=== PATIENT | female | born 1945 | race Caucasian/White ===

== ENCOUNTER 2024-08-06 10:55 | Outpatient (REF) | payer MEDICARE, SELFPAY | END 2024-08-06 10:56 | disposition home or self-care (01) | LOC: HO.LAB 10:55 | PROVIDERS: PCP Internal Medicine; Visit Provider Internal Medicine | DX: Z13.89 Encounter for screening for other disorder (principal) | CPT/HCPCS: 99212 ==

== ENCOUNTER 2024-08-06 10:55 | Outpatient (AMB) | payer MEDICARE, SELFPAY ==
--- NOTE | 2024-08-06 11:19 | AM.OFFWIN_ITS ---
Intake Vital Signs 08/06/24 11:22 Height 5 ft 2 in Weight 206 lb BMI 37.7 BP 122/80 Blood Pressure Location Lt brachial Position Sitting Pulse 92 Pulse Source Pulse Oximeter Pulse Oximetry (%) 95 Oxygen Delivery Method Room Air Intake Visit Reasons: EP cough, cold symptoms Intake Note: Patient here for constant cough, right ear pain, diarrhea and congestion that has been present for about 3 weeks. Patient Tobacco Use Status: Current someday Tobacco user Allergies No Known Allergies Allergy (Verified 08/06/24 11:23) Do you need a note to return to daycare/school/sports/work: No HPI EP cough, cold symptoms HPI Details This note is constructed using voice recognition software. While every effort has been made to ensure accuracy, gold frame assembler errors may have been included. The patient is a 79 year old female who presents to the clinic today with URI symptoms for the past 3 weeks. She denies fever, chills, dyspnea. She does report cough, and has been using her normal allergy treatment as she is an allergy suffer. She has not tried any qnab-eaa-izizajf cough medicines as they do not seem to help her. [facility] Social History Patient Tobacco Use Status: Current someday Tobacco user Review of Systems Const All systems reviewed & are unremarkable except as noted in HPI and below Physical Exam Vital Signs: Last Vital Signs Pulse 92 08/06/24 11:22 BP 122/80 08/06/24 11:22 Pulse Ox 95 08/06/24 11:22 Oxygen Delivery Method Room Air 08/06/24 11:22 BMI result Body Mass Index 37.7 Const General: cooperative, healthy appearing, comfortable and no acute distress Orientation/consciousness: patient oriented x3 Limitations: no limitations HEENT Head: Yes normal to inspection Ears: hearing grossly normal bilaterally, external ears normal and TM abnormal retracted General nose exam: Normal external nose present, No nasal discharge present and Abnormal mucous membranes and turbinates present boggy and pale Face and sinus: Yes normal facial exam and Yes sinuses nontender Mouth: Normal oral and palatal mucosa present and moist mucous membranes Throat: Yes tonsils normal, Yes uvula midline, Yes posterior oropharynx abnormal (Erythema), Yes postnasal drainage and Yes cobblestoning Eyes General: appearance normal, both eyes and all related structures Neck Neck: Yes normal visual inspection Resp Effort & Inspection: normal respiratory effort, able to speak in complete sentences, Actively coughing, no respiratory distress, not tachypneic, no tripod positioning and no use of accessory muscles Auscultation: wheezes throughout Cardio Rate: regular rate Rhythm: regular rhythm Heart sounds: normal S1 and S2 Skin General skin exam: no rashes or lesions noted Neuro General: patient oriented x3 Extrem General: Yes normal to inspection and Yes no clubbing, cyanosis or edema Assessment & Plan Assessment & Plan (1) URI (upper respiratory infection): Code(s): J06.9 - Acute upper respiratory infection, unspecified Qualifiers: URI type: unspecified URI Qualified Code(s): J06.9 - Acute upper respiratory infection, unspecified Plan: Viral swab obtained to rule out Covid based on symptoms. Advised mask wearing while symptomatic and quarantine per current CDC guidelines. Reviewed at home support methods including hydration, humidification, vix vapor rub, sinus rinse. Discussed treatment with antiviral therapy for covid with paxlovid including appropriate use and side effects, and need to start medication within 5 day of symptom onset, preferably within 48 hours of symptom onset. Patient is not qualified for paxlovid treatment. Advised follow up with worsening symptoms such as dyspnea at rest, which would require emergent evaluation. Xray ordered today for evaluation. (2) Pneumonia: Code(s): J18.9 - Pneumonia, unspecified organism Qualifiers: Pneumonia type: due to unspecified organism Laterality: unspecified laterality Lung location: unspecified part of lung Qualified Code(s): J18.9 - Pneumonia, unspecified organism Plan: Xray reviewed and appears to be pneumonia, added to exam, we will treat. Curb 65 score 1, safe for at home treatment. Antimicrobial therapy sent to requested pharmacy. Advised patient to continue with symptomatic management. Advised emergency room or more urgent follow up with any dyspnea at rest. Plan See above for full details and plan. Orders: Orders SARS-CoV2/FLU/RSV Today J06.9 - Acute upper respiratory infection, unspecified XR chest 2V Today J06.9 - Acute upper respiratory infection, unspecified, R06.2 - Wheezing Medications: New amoxicillin-pot clavulanate 875-125 mg 1 tab PO BID 10 days 20 tabs 0RF doxycycline hyclate 100 mg PO BID 10 days 20 caps 0RF Coding Level of Care Code Est Pt Level 4 (98160) Diagnoses Upper respiratory tract infection, unspecified type J06.9 URI type: unspecified URI Pneumonia due to infectious organism, unspecified laterality, unspecified part of lung J18.9 Pneumonia type: due to unspecified organism Laterality: unspecified laterality Lung location: unspecified part of lung
[2024-08-06 11:22] VITALS: BP 122/80; PULSE 92; O2SAT 95; BMI 37.7
== END 2024-08-06 12:12 | disposition home or self-care (01) ==
PROVIDERS: PCP Internal Medicine; Visit Provider Registered Nurse
DX: J06.9 Acute upper respiratory infection, unspecified (principal); J18.9 Pneumonia, unspecified organism

== ENCOUNTER 2024-08-06 11:47 | Outpatient (REF) | payer MEDICARE, SELFPAY ==
--- NOTE | ~2024-08-06 | XR_ITS ---
EXAMINATION: XR CHEST CLINICAL INFORMATION: Acute URI. COMPARISON: None available. TECHNIQUE: 2 views of the chest were obtained. FINDINGS: The lungs are well expanded. There is patchy airspace disease in the right middle lobe. No pleural effusion. Cardiac silhouette is within normal limits for patient's age. XR/XR chest 2V IMPRESSION: Possible right middle lobe infiltrate. Advise clinical correlation. Electronically signed by: Mj Mora MD 08/06/2024 12:26 PM EDT
[2024-08-06 14:57] LABS: Influenza A PCR NEGATIVE (Negative); Influenza B PCR NEGATIVE (Negative); Resp Syncy Virus RNA Qual PCR NEGATIVE (Negative); SARS COV2 PCR INHOUSE NEGATIVE (Negative)
== END 2024-08-06 11:48 | disposition home or self-care (01) ==
LOC: HO.HMGCX 11:47
PROVIDERS: PCP Internal Medicine; Visit Provider Registered Nurse
DX: J06.9 Acute upper respiratory infection, unspecified (principal); R06.2 Wheezing
CPT/HCPCS: 0241U; 71046; 99212

== ENCOUNTER 2025-04-29 08:02 | Outpatient (AMB) | payer MEDICARE, SELFPAY ==
--- NOTE | 2025-04-29 08:08 | MHC.OFFWIV ---
Intake Vital Signs 04/29/25 08:10 Height 5 ft 2 in Weight 205 lb BMI 37.5 BP 130/78 Blood Pressure Location Rt brachial Position Sitting Respiration 12 Pulse 61 Pulse Source Pulse Oximeter Temp 98 F Temp Source Oral Pulse Oximetry (%) 100 Oxygen Delivery Method Room Air Intake Visit Reasons: EP Sore, stiff LT thigh, hard to walk Intake Note: Pt is here today for left side sharp leg/thigh pain it is hard to walk for her. Pain started on tuesday night she is unsure to why she believes she has a pulled muscle. Patient Tobacco Use Status: Current someday Tobacco user Accompanied by: Self / Same As Patient Allergies No Known Allergies Allergy (Verified 04/29/25 08:12) HPI HPI Comments History of Present Illness Details History of Present Illness - The patient is an 80-year-old female presenting with left thigh pain which began on Tuesday. - Symptoms began with mild pain on Tuesday, escalating over the weekend, and are localized to the thigh. She has no radiation of the pain. - The description includes swelling, a sensation of pressure, and hardness. - The patient reports previous cramping and spasms and denies involvement of other joints or distal swelling. - The recent activity of extended sitting at graduation might have contributed to the presentation. - Previous home treatments with heat and cold were ineffective. - She denies trauma or falls. She denies CP, SOB, calf pain, numbness, tingling, hip pain, back pain, knee pain, ankle pain, or edema. Physical Exam General: Cooperative, healthy appearing, comfortable, no acute distress and well developed Respiratory: Normal respiratory effort and able to speak in complete sentences. Clear to auscultation bilaterally Cardiovascular: Regular rate and rhythm. Normal S1 and S2 Skin: No rashes or lesions noted Neuro: Patient oriented x3. Sensation is intact. Extremities: Normal to inspection of the left upper leg. No redness or warmth noted. TP of the left lateral upper leg. No edema noted. No knee tenderness. No calf tenderness noted. FROM the the hip, knee, and ankle. Ambulates with a limp. Strength is 5/5 on the LE bilaterally. Patient was informed and verbally consented to the use of an ambient scribe for clinic note documentation during this visit. [facility] Social History Patient Tobacco Use Status: Current someday Tobacco user Review of Systems Const All systems reviewed & are unremarkable except as noted in HPI and below Physical Exam Vital Signs: Last Vital Signs Temp 98 F 04/29/25 08:10 Pulse 61 04/29/25 08:10 Resp 12 04/29/25 08:10 BP 130/78 04/29/25 08:10 Pulse Ox 100 04/29/25 08:10 Oxygen Delivery Method Room Air 04/29/25 08:10 BMI result Body Mass Index 37.5 Assessment & Plan Assessment & Plan (1) Leg pain, left: Code(s): M79.605 - Pain in left leg Plan Most likely muscle strain vs spasm Plan - Initiate a muscle relaxant to alleviate muscle spasms. - Provide an analgesic for pain management - Advise use of a cane for ambulation support. - Elevate the affected leg using a pillow, trialing cold or heat application based on individual relief response. - Encourage monitoring pain and symptoms, focusing on improvement with the current treatment. Medications: New naproxen 500 mg PO Q12H PRN 20 tabs 0RF pain cyclobenzaprine 5 mg PO tid 7 days PRN 21 tabs 0RF Muscle Spasm Coding Level of Care Code Est Pt Level 3 (49216) Diagnoses Leg pain, left M79.605
--- OUTSIDE RECORDS SUMMARY | 2025-04-29 08:08 | XMS_ITS | Clinical Summary ---
Author Organization [address] Address [address] [place] [phone] Phone Care Team Providers Care Event Planning Manager Name Role Phone Sami Curtis MD Primary Care Provider [phone] Allergies Active Allergy Reactions Criticality Noted Date Comments Other 04/25/2022 Seasonal Allergies Medications cholecalcifero l (VITAMIN D-3) 50 mcg (2,000 unit) capsule Take 2,000 Units by mouth daily. Active cetirizine (ZyrTEC) 10 mg tablet 1 TABLET DAILY 10/30/20 07 Active MULTIVITAMIN ORAL 1 tablet daily Activ e atorvastatin (LIPITOR) 10 mg tablet Take 1 tablet (10 mg total) by mouth 1 (one) time each day. 90 tablet 1 02/27/20 25 025 Active cyclobenzaprin e (FLEXERIL) 5 mg tablet Take 1 tablet (5 mg total) by mouth 2 (two) times a day. 30 tablet 1 02/27/20 25 Active levothyroxine (SYNTHROID, LEVOTHROID) 125 mcg tablet Take 1 tablet (125 mcg total) by mouth 1 (one) time each day before breakfast. 90 tablet 1 02/27/20 25 Active fluticasone propionate (FLONASE) 50 mcg/actuation nasal spray Administer 1 spray into each nostril 1 (one) time each day. Shake gently. Before first use, prime pump. After use, clean tip and replace cap. 16 g 1 02/27/20 25 Active albuterol HFA (PROAIR HFA ; PROVENTIL HFA ; VENTOLIN HFA) 90 mcg/actuation inhaler INHALE 2 PUFFS BY MOUTH 4 (FOUR) TIMES A DAY. 18 each 1 04/25/20 25 Active sertraline (ZOLOFT) 50 mg tablet Take 1.5 tablets (75 mg total) by mouth 1 (one) time each day. 135 tablet 1 04/26/20 25 Active albuterol HFA (PROAIR HFA ; PROVENTIL HFA ; VENTOLIN HFA) 90 mcg/actuation inhaler Inhale 2 puffs by mouth 4 (four) times a day. 8.5 each 1 02/27/20 25 025 Discontinued sertraline (ZOLOFT) 50 mg tablet Take 1.5 tablets (75 mg total) by mouth 1 (one) time each day. 90 tablet 1 02/27/20 25 025 Discontinued Active Problems Problem Noted Date Diagnosed Date Prediabetes 10/20/2020 Elevated blood pressure reading 10/20/2020 Anxiety 08/19/2014 Asthma 01/10/2014 Hypothyroidism 06/03/2008 Obesity 06/19/2007 Hyperlipemia 06/19/2007 Encounters Date Type Department Care Team Description 02/26/2025 8:30 AM EDT Office Visit Adult Medicine [address] [phone] Sami Curtis MD Anxiety (Primary Dx); Mild intermittent asthma, unspecified whether complicated; Class 1 obesity due to excess calories without serious comorbidity in adult, unspecified BMI; Hypothyroidism, unspecified type; Other hyperlipidemia; Prediabetes; Grief 02/18/2025 Telephone Adult Medicine [address] [phone] Sami Curtis MD LAB WORK from Last 3 Months Immunizations Name Administration Dates Next Due Influenza Quadravalent, MDCK , 0.5ml, with preservative (Flucelvax) 6mo and older 11/08/2017 Influenza trivalent, 0.5mL ( Fluad) 65yo and older 09/15/2022,10/09/2021,07/14/2020,09/12,09/18/2018,09/05/2016 Influenza trivalent, 0.5mL, preservative free (Fluarix; FluLaval; Fluzone) ages 6mo and older (Afluria) 3 years and older 09/18/2015,09/18/2014,09/27/2013,10/03,10/26/2011,09/28/2010,08/15/2009 ,09/14/2008,10/21/2007 Influenza, Unspecified 07/14/2020,09/18/2018 Pfizer SARS-CoV-2 COVID-19, mRNA, LNP-S, preservative free 08/15/2021,01/16/2021,12/26/2020 Pneumococcal conjugate 13 va lent (Prevnar 13, PCV13) 2mo and older 10/10/2018 Pneumococcal polysaccharide 23 valent (Pneumovax 23) 2yo and older 10/26/2011 SARS-COV-2 (COVID-19) Vaccin e, Unspecified 09/15/2022 Td Tetanus diptheria (Tdvax) 7yo and older 09/13/2003 Tdap Tetanus diptheria acell ular pertussis (Boostrix; Adacel) 7yo and older 03/15/2013 Zoster Live 12/06/2012 Zoster recombinant (Shingrix ) 19yo and older 08/10/2020,06/12/2020 Surgical History Surgery Date Site/Laterality Comments OTHER SURGICAL HISTORY PROCEDURE: DENIES PREVIOUS SURGERY Medical History Medical History Date Comments Hypothyroid DX:Hypothyroid Urticaria 06/03/2008 DX:Urticaria Obesity 06/19/2007 DX:Obesity Hyperlipemia 06/19/2007 DX:Hyperlipemia Asthma 01/10/2014 DX:Asthma Anxiety 08/19/2014 DX:Anxiety Family History Medical History Relation Name Comments Other: some type of ca Father all over his body , no details Hypertension Mother Breast cancer Neg Hx Relation Name Status Comments Father Mother Social History Tobacco Use Types Packs/Day Years Used Date Smoking Tobacco: Former Cigarettes Q uit: 01/20/2012 Smokeless Tobacco: Never Alcohol Use Standard Drinks/Week Comments Yes 0 (1 standard drink = 0.6 oz pur e alcohol) Comments Unknown Sex and Gender Information Value Date Recorded Sex Assigned at Not on file Legal Sex Female 3:35 AM EST Gender Identity Not on file Sexual Orientation Not on file Obstetrics History Last Filed Vital Signs Vital Sign Reading Time Taken Comments Blood Pressure 110/72 02/26/2025 8:28 AM EDT Pulse 72 02/26/2025 8:28 AM EDT Temperature 36.3 ??C (97.4 ??F) 02/26/2025 8 :28 AM EDT Respiratory Rate 20 02/26/2025 8:28 AM EDT Oxygen Saturation 97% 10/24/2023 8:3 9 AM EST at rest, room air Inhaled Oxygen Concentration - - Weight 91.2 kg (201 lb) 02/26/2025 8:28 AM EDT Height 157.5 cm (5' 2 ) 02/26/2025 8:28 AM EDT Body Mass Index 36.76 02/26/2025 8:28 AM EDT Plan of Treatment Upcoming Encounters Date Type Department Care Team (Late st Contact Info) Description 09/23/2025 1:15 PM EST Office Visit Adult Medicine [facility] [address] [place] [phone] Sami Curtis MD [address] [place] [address] Health Maintenance Due Date Last Done Comments Depression Screening 10/30/2022 Falls Risk Assessment 10/30/2022 Medicare Annual Wellness Visit 10/30/2022 Social Influencers of Health Screening 10/30/2022 DTaP,Tdap,and Td Vaccines (3 - Td or Tdap) 03/15/2023 03/15/2013, 09/13/2003 Colorectal Cancer Screening: Stool Based Tests (FOBT/FIT) 02/20/2025 02/21/2024 COVID-19 Vaccine ( season) 2025 09/17/2024, 11/02/2023, 09/15/2022, Additional history exists Cholesterol Screening (Lipid Panel) 02/18/2030 02/18/2025, 02/10/2024 Osteoporosis Screening (Bone Density Screening) 02/28/2033 02/28/2023, 01/09/2020 Zoster Vaccines Completed 08/10/2020, 05/22, 12/06/2012 Influenza Vaccine Completed 09/17/2024, , 09/15/2022, Additional history exists Pneumococcal Vaccine: 50+ Years Completed 10/24/2024, 10/10/2018, 10/26/2011 RSV Immunization Adult Patients Completed 10/24/2024 HIB Vaccines Aged Out No longer eligi ble based on patient's age to complete this topic HPV Vaccines Aged Out No longer eligi ble based on patient's age to complete this topic Hepatitis A Vaccines Aged Out No long er eligible based on patient's age to complete this topic Hepatitis B Vaccines Aged Out No long er eligible based on patient's age to complete this topic IPV Vaccines Aged Out No longer eligi ble based on patient's age to complete this topic MMR Vaccines Aged Out No longer eligi ble based on patient's age to complete this topic Meningococcal ACWY Vaccine Aged Out N o longer eligible based on patient's age to complete this topic Meningococcal B Vaccine Aged Out No l onger eligible based on patient's age to complete this topic RSV Immunization Patients Under 20 months Aged Out No longer eligible based on patient's age to complete this topic Varicella Vaccines Aged Out No longer eligible based on patient's age to complete this topic Procedures Procedure Name Priority Date/Time Associated Diagnosis Comments TRIIODOTHYRONINE FREE Routine 02/18/2025 12:00 PM EDT Hypothyroidism, unspecified type FREE THYROXINE WITH REFLEX TO FREE TRIIODOTHYRONINE Routine 02/18/2025 12:00 PM EDT Hypothyroidism, unspecified type HEMOGLOBIN A1C Routine 02/18/2025 12:00 PM EDT Prediabetes LIPID PANEL WITH REFLEX TO DIRECT LDL Routine 02/18/2025 12:00 PM EDT Other hyperlipidemia HEPATIC FUNCTION PANEL Routine 12:00 PM EDT Other hyperlipidemia THYROID STIMULATING HORMONE WITH REFLEX TO FREE T4 AND FREE T3 Routine 02/18/2025 12:00 PM EDT Hypothyroidism, unspecified type HM STOOL BASED TEST Routine 02/21/2024 DXA BONE DENSITY STUDY 1+ SITS AXIAL SKEL Routine 02/28/2023 9:27 AM EDT Asymptomatic menopausal state from Last 3 Months or Most Recently Relevant to Health Maintenance Results * (ABNORMAL) Thyroid stimulating hormone with reflex to free t4 and free t3 (02/18/2025 12:00 PM EDT) TSH 4.73(H) 0.40 - 4.00 mcIU/mL LAB CHEMISTRY METHOD 02/18/2025 4:38 PM EDT [facility] Blood Venous blood specimen / Unknown Venipuncture / Unknown 02/18/2025 12:00 PM EDT 02/18/2025 12:01 PM EDT us Sami Curtis MD LAB BLOOD ORDERABLES Final Resul t Performing Organization Address [facility]/ZIP Co de Phone Number [facility] [address] [place] [address], [place] [phone] * Free thyroxine with reflex to free triiodothyronine (02/18/2025 12:00 PM EDT) Pathologist [facility] Free T4 1.15 0.70 - 1.80 ng/dL LAB CHEMISTRY METHOD 02/18/2025 5:48 PM EDT [facility] Blood Venous blood specimen / Unknown Venipuncture / Unknown 02/18/2025 12:00 PM EDT 02/18/2025 12:01 PM EDT us Sami Curtis MD LAB BLOOD ORDERABLES Final Resul t [facility] [address] [place] [address], [place] [phone] * Lipid panel with reflex to direct LDL (02/18/2025 12:00 PM EDT) Cholesterol 184 0 - 200 mg/dL LAB CHEMISTRY METHOD 02/18/2025 3:34 PM EDT [facility] Triglycerides 111 0 - 150 mg/dL LAB CHEMISTRY METHOD 02/18/2025 3:34 PM EDT [facility] HDL 69 >=40 mg/dL LAB CHEMISTRY METHOD 02/18/2025 3:34 PM EDT [facility] LDL Calculated 93 0 - 100 mg/dL LAB CHEMISTRY METHOD 02/18/2025 3:34 PM EDT [facility] VLDL Cholesterol Charles 22.2 mg/dL LAB CHEMISTRY METHOD 02/18/2025 3:34 PM EDT [facility] Non HDL Chol. (LDL+VLDL) 115 <145 mg/dL LAB CHEMISTRY METHOD 02/18/2025 3:34 PM EDT [facility] Chol/HDL Ratio 2.7 0.0 - 4.4 LAB CHEMISTRY METHOD 02/18/2025 3:34 PM EDT [facility] Blood Venous blood specimen / Unknown Venipuncture / Unknown 02/18/2025 12:00 PM EDT 02/18/2025 12:01 PM EDT us Sami Curtis MD LAB BLOOD ORDERABLES Final Resul t Performing Organization Address City/[facility]/ZIP Co de Phone Number [facility] [address] [place] [address], [place] [phone] * Triiodothyronine free (02/18/2025 12:00 PM EDT) T3, Free 242 230 - 420 pcg/dL LAB CHEMISTRY METHOD 02/18/2025 6:24 PM EDT [facility] Blood Venous blood specimen / Unknown Venipuncture / Unknown 02/18/2025 12:00 PM EDT 02/18/2025 12:01 PM EDT us Sami Curtis MD LAB BLOOD ORDERABLES Final Resul t Performing Organization Address City/[facility]/ZIP Co de Phone Number [facility] [address] [place] [address], [place] [phone] * Hemoglobin A1c (02/18/2025 12:00 PM EDT) [facility] Hemoglobin A1C 6.1 <6.5 % LAB CHEMISTRY METHOD 02/18/2025 9:29 PM EDT [facility] Mean Bld Glu Estim. 128 mg/dL LAB CHEMISTRY METHOD 02/18/2025 9:29 PM EDT [facility] Blood Venous blood specimen / Unknown Venipuncture / Unknown 02/18/2025 12:00 PM EDT 02/18/2025 12:01 PM EDT us Sami Curtis MD LAB BLOOD ORDERABLES Final Resul t [facility] [address] [place] [address], [place] [phone] * Hepatic function panel (02/18/2025 12:00 PM EDT) [facility] Total Protein 7.2 6.0 - 8.0 g/dL LAB CHEMISTRY METHOD 02/18/2025 3:34 PM EDT [facility] Albumin 3.8 3.2 - 5.0 g/dL LAB CHEMISTRY METHOD 02/18/2025 3:34 PM EDT [facility] Total Bilirubin 0.5 0.0 - 1.4 mg/dL LAB CHEMISTRY METHOD 02/18/2025 3:34 PM EDT [facility] Bilirubin, Direct 0.1 0.0 - 0.3 mg/dL LAB CHEMISTRY METHOD 02/18/2025 3:34 PM EDT [facility] Bilirubin, Indirect 0.4 0.0 - 1.1 mg/dL LAB CHEMISTRY METHOD 02/18/2025 3:34 PM EDT [facility] ALT (SGPT) 20 10 - 60 unit/L LAB CHEMISTRY METHOD 02/18/2025 3:34 PM EDT [facility] AST (SGOT) 14 10 - 42 unit/L LAB CHEMISTRY METHOD 02/18/2025 3:34 PM EDT [facility] Alkaline Phosphatase 65 42 - 121 unit/L LAB CHEMISTRY METHOD 02/18/2025 3:34 PM EDT [facility] Blood Venous blood specimen / Unknown Venipuncture / Unknown 02/18/2025 12:00 PM EDT 02/18/2025 12:01 PM EDT Sami Curtis MD LAB BLOOD ORDERABLES Final Resul t [facility] [address] [place] [address], [place] [phone] * Stool Based Tests (FOBT/FIT) (02/21/2024) [facility] Colorectal Cancer Screening: Stool Based Tests Abstracted Historical Provider HEALTH MAINTENANCE Final Result * DXA BONE DENSITY STUDY 1+ SITS AXIAL SKEL (02/28/2023 9:27 AM EDT) Anatomical Region Laterality Modality Bone Densitometr y 09/20/2022 8:56 AM EDT Narrative 02/28/2023 11:00 AM EDT BONE DENSITY ? Lumbar Spine T-score is -0.2 ?? (SD relative to 20-29 y/o adult) Z-score is +2.2 ??(SD relative to age matched peers) This is normal by criteria defined by the WHO. Left Hip T-score is +0.3 Z-score is +2.0 This is normal by criteria defined by the WHO. Comparison exam(s): significant increase in bone density of ??hip and lumbar spine when compared to most recent bone density examination ?? Confidence level is +/-95%. Impression: Based on the World Health Organization criteria, Jasmin Johnson should be classified as having normal bone density. T [facility] Department of Internal Medicine recommends using National Osteoporosis Foundation (NOF) guidelines in treatment decisions related to osteoporosis. NOF guidelines suggest considering treatment for postmenopausal women and men aged 50 or older presenting with the following: History of hip or vertebral fracture. T-score less than or equal to -2.5 (DXA) at the femoral neck, total hip, or spine, after appropriate evaluation to exclude secondary causes. Low bone mass (T-score between -1.0 and -2.5 at the femoral neck or spine) AND a 10-year probability of a hip fracture greater than or equal to 3% OR a 10-year probability of a major osteoporosis-related fracture greater than or equal to 20% based on the [place]-adapted WHO algorithm Please note that all treatment decisions require clinical judgment and consideration of individual patient factors, including patient preferences, co-morbidities, previous drug use, risk factors not captured in the FRAX model (e.g., frailty, falls, vitamin D deficiency, increased bone turnover, interval significant decline in bone density) and possible under- or over-estimation of fracture risk by FRAX. Procedure Note Jesica Almendarez MD - 12/26/2023 BONE DENSITY Lumbar Spine T-score is -0.2 (SD relative to 20-29 y/o adult) Z-score is +2.2 (SD relative to age matched peers) This is normal by criteria defined by the WHO. Left Hip T-score is +0.3 Z-score is +2.0 This is normal by criteria defined by the WHO. Comparison exam(s): significant increase in bone density of hip andlumbar spine when compared to most recent bone density examination Confidence level is +/-95%. Impression: Based on the World Health Organization criteria, Jasmin Johnson should beclassified as having normal bone density. T [facility] Department of Internal Medicine recommendsusing National Osteoporosis Foundation (NOF) guidelines in treatmentdecisions related to osteoporosis. NOF guidelines suggest consideringtreatment for postmenopausal women and men aged 50 or older presentingwith the following: History of hip or vertebral fracture. T-score less than or equal to -2.5 (DXA) at the femoral neck, total hip,or spine, after appropriate evaluation to exclude secondary causes. Low bone mass (T-score between -1.0 and -2.5 at the femoral neck or spine)AND a 10-year probability of a hip fracture greater than or equal to 3% ORa 10-year probability of a major osteoporosis-related fracture greaterthan or equal to 20% based on the [place]-adapted WHO algorithm Please note that all treatment decisions require clinical judgment andconsideration of individual patient factors, including patientpreferences, co-morbidities, previous drug use, risk factors not capturedin the FRAX model (e.g., frailty, falls, vitamin D deficiency, increasedbone turnover, interval significant decline in bone density) and possibleunder- or over-estimation of fracture risk by FRAX. Kandi [facility] DXA PROCEDURES Final Result from Last 3 Months or Most Recently Relevant to Health Maintenance Insurance [employer] Care Teams Event Planning Manager Relationship Specialty Start Date End Date Sami Curtis MD [address] [place] [address] PCP - General 09/20/1999
[2025-04-29 08:10] VITALS: BP 130/78; PULSE 61; RESP 12; TEMP 36.6; O2SAT 100; BMI 37.5
== END 2025-04-29 08:41 | disposition home or self-care (01) ==
PROVIDERS: PCP Internal Medicine; Visit Provider Physician Assistant Medical
DX: M79.605 Pain in left leg (principal)

== ENCOUNTER → 2025-04-29 08:02 | Outpatient (BNVA) | payer MEDICARE, SELFPAY | PROVIDERS: PCP Internal Medicine; Visit Provider Physician Assistant Medical | DX: M79.605 Pain in left leg (principal) | CPT/HCPCS: 99212 ==

== ENCOUNTER 2025-05-07 | Outpatient (REF) | payer MEDICARE, SELFPAY ==
--- OUTSIDE RECORDS SUMMARY | 2025-05-21 09:45 | XMS_ITS | Clinical Summary ---
Author Organization [address] Address [address] [place] [phone] Phone Care Team Providers Care Hospital Aide Name Role Phone Sami Curtis MD Primary Care Provider [phone] Allergies Active Allergy Reactions Criticality Noted Date [...] day. 135 tablet 1 04/26/20 25 Active naproxen (NAPROSYN) 500 mg tablet Take 1 tablet (500 mg total) by mouth every 12 (twelve) hours if needed. Was given at [facility] Active methylPREDNISo lone (MEDROL) 4 mg tablet Take 6 tabs PO on day 1, 5 tabs PO on day 2, 4 tabs PO on day 3, 3 tabs PO on day 2, 2 tabs PO on day 5 and 1 tab PO on day 6. 21 tablet 05/08/20 25 Active albuterol HFA (PROAIR HFA ; [...] Encounters Date Type Department Care Team Description 05/08/2025 11:02 AM EDT - 05/08/2025 11:59 PM EDT Hospital Encounter Radiology Department - [address] [phone] Pain of left thigh; Left leg swelling Discharge Disposition: Home or Self Care 05/08/2025 10:30 AM EDT Office Visit Adult Medicine [address] [phone] Maye Cee, HUMAN MACHINE INTERFACE ENGINEER Pain of left thigh (Primary Dx); Left leg swelling; Need for vaccination with 20-polyvalent pneumococcal conjugate vaccine 05/07/2025 Telephone Adult Medicine [address] [phone] Sami Curtis MD Leg Swelling (Left thigh); Leg Pain 02/26/2025 8:30 AM EDT Office Visit Adult Medicine [address] [phone] Sami Curtis MD Anxiety (Primary Dx); Mild intermittent asthma, unspecified whether complicated; Class 1 obesity due to excess calories without serious comorbidity in adult, unspecified BMI; Hypothyroidism, unspecified type; Other hyperlipidemia; Prediabetes; Grief from Last 3 Months Immunizations Name Administration Dates Next Due Influenza Quadravalent, MDCK , 0.5ml, with preservative (Flucelvax) 6mo and older 11/08/2017 Influenza trivalent, 0.5mL ( Fluad) 65yo and older 09/15/2022,10/09/2021,07/14/2020,09/12,09/18/2018,09/05/2016 Influenza trivalent, 0.5mL, preservative free (Fluarix; FluLaval; Fluzone) ages 6mo and older (Afluria) 3 years and older 09/18/2015,09/18/2014,09/27/2013,10/03,10/26/2011,09/28/2010,08/15/2009 ,09/14/2008,10/21/2007 Influenza, Unspecified 07/14/2020,09/18/2018 [employer] SARS-CoV-2 COVID-19, mRNA, LNP-S, preservative free 08/15/2021,01/16/2021,12/26/2020 [...] Sign Reading Time Taken Comments Blood Pressure 122/72 05/08/2025 10:29 AM EDT Pulse 94 05/08/2025 10:29 AM EDT Temperature 35.7 C (96.2 F) 05/08/2025 10:29 AM EDT Respiratory Rate 16 05/08/2025 10:29 AM EDT Oxygen Saturation 99% 05/08/2025 10:29 AM EDT Inhaled Oxygen Concentration - - Weight 91.6 kg (202 lb) 05/08/2025 10:29 AM EDT Height 157.5 cm (5' 2 ) 05/08/2025 10:29 AM EDT Body Mass Index 36.95 05/08/2025 10:29 AM EDT Plan of Treatment Upcoming Encounters Date Type Department Care Team (Late st Contact Info) Description 09/23/2025 1:15 PM EST Office Visit Adult Medicine [facility] [place] [address] [place] [address] Sami Curtis MD [address] [place] [address] Health Maintenance Due Date Last Done Comments [...] Procedure Name Priority Date/Time Associated Diagnosis Comments VAS US DUPLEX LOWER EXT VENOUS LEFT STAT 05/08/2025 11:19 AM EDT Pain of left thigh Left leg swelling LIPID PANEL WITH REFLEX TO DIRECT LDL Routine 02/18/2025 12:00 PM EDT Other hyperlipidemia HM STOOL BASED TEST Routine 02/21/2024 DXA BONE DENSITY STUDY 1+ SITS AXIAL SKEL Routine 02/28/2023 9:27 AM EDT Asymptomatic menopausal state from Last 3 Months or Most Recently Relevant to Health Maintenance Results * Vascular US duplex lower extremity venous left (05/08/2025 11:19 AM EDT) Anatomical Region Laterality Modality Vascular, Abdomen Ultrasound 05/08/2025 11:2 9 AM EDT Impressions 05/08/2025 11:30 AM EDT Impression: Normal left lower extremity deep venous Doppler examination. No evidence of DVT. -------- FINAL REPORT -------- Dictated By: Armida Jacob Dictated Date: 05/08/2025 11:29 ET Assigned Physician: Armida Jacob Reviewed and Electronically Signed By: Armida Jacob Signed Date: 05/08/2025 11:30 ET Workstation ID: [id number] Transcribed By: Self Edit Transcribed Date: 05/08/2025 11:29 ET Narrative 05/08/2025 11:30 AM EDT History: DVT history. Pain in extremities. Left lower extremity deep venous Doppler examination: Real-time, duplex and color Doppler examination of the deep venous system of the left lower extremity was performed, including the common femoral, greater saphenous, profunda femora takeoff, femoral and popliteal venous segments, as well as the paired posterior tibial, peroneal and gastrocnemius veins in the calf. Color filling appears normal. There are no appreciable filling defects. Compression and augmentation were normal throughout. No abnormal fluid collections are demonstrated. Procedure Note Armida Jacob MD - 05/08/2025 History: DVT history. Pain in extremities. Left lower extremity deep venous Doppler examination: Real-time, duplexand color Doppler examination of the deep venous system of the left lowerextremity was performed, including the common femoral, greater saphenous,profunda femora takeoff, femoral and popliteal venous segments, as well asthe paired posterior tibial, peroneal and gastrocnemius veins in the calf. Color filling appears normal. There are no appreciable filling defects. Compression and augmentation were normal throughout. No abnormal fluid collections are demonstrated. IMPRESSION: Impression: Normal left lower extremity deep venous Doppler examination.No evidence of DVT. -------- FINAL REPORT -------- Dictated By: Armida Jacob Dictated Date: 05/08/2025 11:29 ET Assigned Physician: Armida Jacob Reviewed and Electronically Signed By: Armida Jacob Signed Date: 05/08/2025 11:30 ET Workstation ID: [id number] Transcribed By: Self Edit Transcribed Date: 05/08/2025 11:29 ET us Maye Cee NP CV VASCULAR PROCEDURES Final Result * Lipid panel with reflex to direct LDL (02/18/2025 12:00 PM EDT) Cholesterol 184 0 - 200 mg/dL LAB CHEMISTRY METHOD 02/18/2025 3:34 PM EDT [facility] Triglycerides 111 0 - 150 mg/dL LAB CHEMISTRY METHOD 02/18/2025 3:34 PM EDT [facility] HDL 69 >=40 mg/dL LAB CHEMISTRY METHOD 02/18/2025 3:34 PM EDT [facility] LDL Calculated 93 0 - 100 mg/dL LAB CHEMISTRY METHOD 02/18/2025 3:34 PM EDT [facility] VLDL Cholesterol Charles 22.2 mg/dL LAB CHEMISTRY METHOD 02/18/2025 3:34 PM EDT [facility] Non HDL Chol. (LDL+VLDL) 115 <145 mg/dL LAB CHEMISTRY METHOD 02/18/2025 3:34 PM EDT [facility] Chol/HDL Ratio 2.7 0.0 - 4.4 LAB CHEMISTRY METHOD 02/18/2025 3:34 PM EDT [facility] Blood Venous blood specimen / Unknown Venipuncture / Unknown 02/18/2025 12:00 PM EDT 02/18/2025 12:01 PM EDT Sami Curtis MD LAB BLOOD ORDERABLES Final Resul t [facility] [address] [place] [address], * Stool Based Tests (FOBT/FIT) (02/21/2024) [facility] Colorectal Cancer Screening: Stool Based Tests Abstracted Historical Provider HEALTH MAINTENANCE Final Result * DXA BONE DENSITY STUDY 1+ SITS AXIAL SKEL (02/28/2023 9:27 AM EDT) Anatomical Region Laterality Modality Bone Densitometr y 09/20/2022 8:56 AM EDT Narrative 02/28/2023 11:00 AM EDT BONE DENSITY Lumbar Spine T-score is -0.2 (SD relative to 20-29 y/o adult) Z-score is +2.2 (SD relative to age matched peers) This is normal by criteria defined by the WHO. Left Hip T-score is +0.3 Z-score is +2.0 This is normal by criteria defined by the WHO. Comparison exam(s): significant increase in bone density of hip and lumbar spine when compared to most recent bone density examination Confidence level is +/-95%. Impression: Based on the World Health Organization criteria, Jasmin Johnson should be classified as having normal bone density. T [facility] Department of Internal Medicine recommends [...] as having normal bone density. T [facility] Department of Internal Medicine recommendsusing [...] of fracture risk by FRAX. Kandi BRO IMG DXA PROCEDURES Final Result from Last 3 Months or Most Recently Relevant to Health Maintenance Insurance [employer] Care Teams Hospital Aide Relationship Specialty Start Date End Date Sami Curtis MD [address] [place] [address] PCP - General 09/20/1999
== END 2025-05-07 00:01 | disposition home or self-care (01) ==
LOC: CF
PROVIDERS: Visit Provider Physician Assistant
DX: M79.605 Pain in left leg (principal); M79.89 Other specified soft tissue disorders
CPT/HCPCS: 99202

== ENCOUNTER 2025-05-07 08:11 | Outpatient (AMB) | payer MEDICARE, SELFPAY ==
[2025-05-07 08:14] VITALS: BP 138/86; PULSE 102; TEMP 36.8; O2SAT 95; BMI 37.4
--- NOTE | 2025-05-07 08:14 | MHC.OFFWIV ---
Intake Vital Signs 05/07/25 08:14 Height 5 ft 2 in Weight 204 lb 4 oz BMI 37.4 BP 138/86 Blood Pressure Location Lt brachial Position Sitting Pulse 102 H Pulse Source Pulse Oximeter Temp 98.2 F Temp Source Oral Pulse Oximetry (%) 95 Oxygen Delivery Method Room Air Intake Visit Reasons: EP-lt thigh swollen & pain Intake Note: Pt presents to the office today for c/o left thigh swelling and pain. Pt states she was seen last week for the same concern but states it hasnt gotten any better. Patient Tobacco Use Status: Current someday Tobacco user Allergies No Known Allergies Allergy (Verified 05/07/25 08:17) HPI HPI Comments History of Present Illness Details History - The patient is an 80-year-old female presenting with continued left thigh swelling and pain. - The swelling and pain began approximately two weeks ago without any known injury. - The patient has been less active recently, with prolonged periods of sitting during family events and long car rides to these events. - The pain is described as an ache, worsened by lying down and somewhat alleviated by walking. - She was seen at this [place] last week, rx'd naproxen and cyclobenzaprine, which she has been taking, they have not been effective. - The patient smokes but has no history of thrombosis or malignancy. Physical Exam General: Cooperative, healthy appearing, comfortable, no acute distress and well developed Orientation: Patient oriented x3 Limitations: No limitations Head: Normal to inspection Ears: Hearing grossly normal bilaterally Nose: Normal External nose present Face and sinus: Normal facial exam Mouth: normal, moist oral mucosa Eyes: Appearance normal, both eyes and all related structures Neck: Normal visual inspection and Yes full ROM Respiratory: Normal respiratory effort and able to speak in complete sentences. Skin: LLE darker overall than RLE Neuro: Patient oriented x3 Extremities: edema in LLE, TTP thigh, negative Ruben's. Moving all extremities normally. [facility] Social History Patient Tobacco Use Status: Current someday Tobacco user Review of Systems Const All systems reviewed & are unremarkable except as noted in HPI and below Physical Exam Vital Signs: Last Vital Signs Temp 98.2 F 05/07/25 08:14 Pulse 102 H 05/07/25 08:14 BP 138/86 05/07/25 08:14 Pulse Ox 95 05/07/25 08:14 Oxygen Delivery Method Room Air 05/07/25 08:14 BMI result Body Mass Index 37.4 Assessment & Plan Assessment & Plan (1) Pain and swelling of left lower extremity: Code(s): M79.605 - Pain in left leg; M79.89 - Other specified soft tissue disorders Plan: HR 102, O2 95%, smoker and Wells Score 2, cannot rule out DVT. An ultrasound will be performed to confirm or rule out DVT as the underlying cause. As the ultrasound machine and she could be is not operating currently, we will make an appointment for the patient to have a DVT rule out study done today. Patient needs to leave and has requested that we call her with the appointment time. Orders: Orders US venous duplex LE LT Today M79.605 - Pain in left leg, M79.89 - Other specified soft tissue disorders Coding Level of Care Code New Pt Level 4 (54019) Diagnoses Pain and swelling of left lower extremity M79.605; M79.89
--- OUTSIDE RECORDS SUMMARY | 2025-05-07 08:16 | XMS_ITS | Encounter Summary ---
Author Organization [facility] Address [address] [place] [address] Care Team Providers Care Overhead Crane Truck Loader Name Role Phone Sami Curtis MD Primary Care Provider [phone] Encounter Details Date Type Department Care Team Description 11/12/2016 [facility] Medical Records [address] [place] [address] Abstract, Provider Social History Tobacco Use Types Packs/Day Years Used Date Smoking Tobacco: Former Cigarettes 0 0 Q uit: 01/20/2012 Smokeless Tobacco: Never Alcohol Use Standard Drinks/Week Comments Yes 0 (1 standard drink = 0.6 oz pur e alcohol) soc. Sex Assigned at Date Recorded Not on file Job Start Date Occupation Industry Not on file Not on file Not on file documented as of this encounter Plan of Treatment Not on file documented as of this encounter Visit Diagnoses Not on filedocumented in this encounter Care Teams Overhead Crane Truck Loader Relationship Specialty Start Date End Date Sami Curtis MD [address] [place] [address] [phone] PCP - General 09/20/1999 documented as of this encounter
== END 2025-05-07 08:47 | disposition home or self-care (01) ==
PROVIDERS: PCP Internal Medicine; Visit Provider Physician Assistant
DX: M79.605 Pain in left leg (principal); M79.89 Other specified soft tissue disorders

== ENCOUNTER → 2025-05-07 08:11 | Outpatient (BNVA) | payer MEDICARE, SELFPAY | PROVIDERS: PCP Internal Medicine ==

== ENCOUNTER 2025-09-30 11:50 | Outpatient (AMB) | payer MEDICARE, SELFPAY ==
[2025-09-30 11:53] VITALS: BP 136/74; PULSE 95; TEMP 36.8; O2SAT 95; BMI 38.6
--- NOTE | 2025-09-30 11:53 | AM.OFFWIN_ITS ---
Intake Vital Signs 09/30/25 11:53 Height 5 ft 2 in Weight 211 lb BMI 38.6 BP 136/74 Blood Pressure Location Lt brachial Position Sitting Pulse 95 Pulse Source Pulse Oximeter Temp 98.3 F Temp Source Oral Pulse Oximetry (%) 95 Oxygen Delivery Method Room Air Intake Visit Reasons: EP-chest congestion, rt ear pain Intake Note: pt presents with chest congestion with dry cough, sinus congestion with post nasal drip RT ear pressure and discomfort for about 6 days Patient Tobacco Use Status: Current someday Tobacco user Allergies No Known Allergies Allergy (Verified 09/30/25 11:59) Do you need a note to return to daycare/school/sports/work: No HPI HPI Comments History of Present Illness Details History of Present Illness - The patient is an 80-year-old female p resenting with symptoms of sinus pressure and ear pressure. - Symptoms started five to six days ago, with a blocked right ear and sinus pressure. - She experiences postnasal drip and jose alfredo st congestion, without fever. - Current medications include Zyrtec and Flonase, which have not been effective. - She has some post nasal drip and feels like its going into her chest. - She denies fever, chills, CP, SOB, abd pain, n/v/d, [place], or dizziness. Physical Exam General: Cooperative, healthy appearing, comfortable, no acute distress and well developed Head: Normal to inspection Ears: Hearing grossly normal bilaterally. No tragus or mastoid tenderness noted. Auditory canals clear bilaterally. TM's normal, not bulging. No fluid noted. Nose: Normal external nose present. Moist mucosa. Turbinates normal bilaterally, not boggy. Face and sinus: Tenderness to palpation of the frontal and maxillary sinuses bilaterally. Neck: Normal visual inspection and Yes full ROM. No lymphadenopathy noted. Respiratory: Normal respiratory effort and able to speak in complete sentences. Clear to auscultation bilaterally Cardiovascular: Regular rate and rhythm. Normal S1 and S2 Skin: No rashes or lesions noted [facility] Social History Patient Tobacco Use Status: Current someday Tobacco user Review of Systems Const All systems reviewed & are unremarkable except as noted in HPI and below Physical Exam Vital Signs: Last Vital Signs Temp 98.3 F 09/30/25 11:53 Pulse 95 09/30/25 11:53 BP 136/74 11/10/25 11:53 Pulse Ox 95 09/30/25 11:53 Oxygen Delivery Method Room Air 09/30/25 11:53 BMI result Body Mass Index 38.6 Assessment & Plan Assessment & Plan (1) Sinus congestion: Code(s): R09.81 - Nasal congestion Plan Most likely sinusitis vs URI vs covid vs flu vs RSV plan - tylenol or motrin as needed for pain or fever - zyrtec D daily - Augmentin BID for 7 days - will call with the results - follow up with PCP Orders: Orders SARS-CoV2/FLU/RSV Today R09.89 - Other specified symptoms and signs involving the circulatory and respiratory systems Medications: New amoxicillin-pot clavulanate 875-125 mg 1 tab PO Q12H 14 tabs 0RF cetirizine-pseudoephedrine 5-120 mg ER 1 tab PO BID 14 tabs 0RF 7 days Coding Level of Care Code Est Pt Level 3 (47762) Diagnoses Sinus congestion R09.81
--- OUTSIDE RECORDS SUMMARY | 2025-09-30 14:14 | XMS_ITS | Encounter Summary ---
Author Organization [facility] Address [address] [place] [address] Care Team Providers Care Construction Project Manager Name Role Phone Sami Curtis MD Primary Care Provider [phone] Reason for Visit * Reason Comments E-prescribe Rx Request Encounter Details Date Type Department Care Team Description 08/11/2024 Refill Adult Medicine [facility] [place] [address] [place] [id number] Sami Curtis MD [address] [place] [phone] E-prescribe Rx Request Social History Tobacco Use Types Packs/Day Years [...] on file documented as of this encounter Miscellaneous Notes * Telephone Encounter - Iman Gomez M.A. - 08/13/2024 1:25 PM EDT Last office visit 02/21/24 Next office visit 08/28/24 Lab Results Component Value Date ALB 3.9 09/20/2022 SGOT 15 02/10/2024 SGPT 20 02/10/2024 TBILI 0.5 09/20/2022 ALKPHOS 55 09/20/2022 TP 7.2 09/20/2022 * Telephone Encounter - Annabella Golinda - 08/11/2024 7:19 AM EDT Patient would like script to be: E-PRESCRIBED/FAXED TO PHARMACY WHEN WAS THE PATIENT'S LAST APPOINTMENT IN ADULT MEDICINE? 02/21/24 WHEN WAS THE LAST TIME THE PATIENT SAW THEIR PCP? Same as above Does patient have an upcoming appointment? Yes 08/28/24 (THE MEDICATION REQUESTED IS ON THE MED LIST ABOVE) All of the medications requested were on the CURRENT MEDS list Did you check the Pharmacy information above?: YES Patient wants: 90 -day supply Is this a mail order prescription request ? NO If the refill is from a FAXED refill request what is the RX # listed on the fax? N/A Patients current insurance carrier is: Payor: [employer] [facility] FFS / Plan: [employer] MED[employer]ARE ADVANTAGE $0/$30 / Product Type: MEDICARE [id number] documented in this encounter Plan of Treatment Not on file documented as of this encounter Visit Diagnoses Not on filedocumented in this encounter Care Teams Construction Project Manager Relationship Specialty Start Date End Date Sami Curtis MD [address] [place] [phone] PCP - General 09/20/1999 documented as of this encounter
--- OUTSIDE RECORDS SUMMARY | 2025-09-30 14:14 | XMS_ITS | Encounter Summary ---
Author Organization [facility] Address [address] [place] [address] Care Team Providers Care Shank Carrier Name Role Phone Sami Curtis MD Primary Care Provider [phone] Encounter Details Date Type Department Care Team Description 08/11/2015 Telephone Adult Medicine [facility] [place] [address] [place] [phone] Sami Curtis MD [address] [place] [address] [phone] Social History Tobacco Use Types Packs/Day Years [...] encounter Miscellaneous Notes * Telephone Encounter - Rosina Rico - 08/13/2015 3:55 PM EDT Patient is at front end mechanic to see Reny re: ekg * Telephone Encounter - Reny Ford M.A. - 08/13/2015 3:01 PM EDT [phone] (home) [phone] (work) * Telephone Encounter - Aniyah Schmidt - 08/12/2015 8:50 AM EDT Patient returning call. Requesting a call back. * Telephone Encounter - Reny Ford M.A. - 08/11/2015 2:26 PM EDT Left message for pt to call back. She needs to come in For another EKG as we cannot find original. Reny x [phone] documented in this encounter Plan of Treatment Not on file documented as of this encounter Visit Diagnoses Not on filedocumented in this encounter Care Teams Shank Carrier Relationship Specialty Start Date End Date Sami Curtis MD [address] [place] [id number] PCP - General 09/20/1999 documented as of this encounter
--- OUTSIDE RECORDS SUMMARY | 2025-09-30 14:14 | XMS_ITS | Encounter Summary ---
Author Organization [facility] Address [address] [place] [address] Care Team Providers Care Heavy Coil Winder Name Role Phone Sami Curtis MD Primary Care Provider [phone] Reason for Visit * Reason Onset Date Comments Annual Wellness Outreach 08/25/2021 Encounter Details Date Type Department Care Team Description 08/25/2021 Telephone Adult Medicine [facility] [address] [place] [address] Sami Curtis MD [address] [place], [place] [phone] Annual Wellness Outreach Social History Tobacco Use Types Packs/Day Years Used Date Smoking Tobacco: Former Cigarettes 0 0 Q uit: 01/20/2012 Smokeless Tobacco: Never Alcohol Use Standard Drinks/Week Comments Yes 0 (1 standard drink = 0.6 oz pur e alcohol) soc. Sex Assigned at Date Recorded Not on file Job Start Date Occupation Industry Not on file Not on file Not on file COVID-19 Exposure Response Date Recorded In the last month, have you been in contact with someone who was confirmed or suspected to have Coronavirus / COVID-19? No / Unsure 08/18/2021 8:56 AM EDT documented as of this encounter Miscellaneous Notes * Telephone Encounter - Jcarlos Doe M.A. - 08/25/2021 8:26 AM EDT Ms. Johnson was contacted by telephone. 1st attempt. lvm documented in this encounter Plan of Treatment Not on file documented as of this encounter Visit Diagnoses Not on filedocumented in this encounter Care Teams Heavy Coil Winder Relationship Specialty Start Date End Date Sami Curtis MD [address] [place] [phone] PCP - General 09/20/1999 documented as of this encounter
--- OUTSIDE RECORDS SUMMARY | 2025-09-30 14:14 | XMS_ITS ---
Author Name [facility] Organization Unknown Care Team Organization Name Specialty Phone Email Start Date End Da te [facility] 09/28/2022 07/09/2024
--- OUTSIDE RECORDS SUMMARY | 2025-09-30 14:14 | XMS_ITS | Encounter Summary ---
Author Organization [facility] Address [address] [place] [address] Care Team Providers Care Tufter Name Role Phone Sami Curtis MD Primary Care Provider [phone] Encounter Details Date Type Department Care Team Description 12/12/2018 Release of Information Medical Records [address] [place] [id number] Abstract, Provider Social History Tobacco Use Types [...] on filedocumented in this encounter Care Teams Tufter Relationship Specialty Start Date End Date Sami Curtis MD [address] [place] [phone] PCP - General 09/20/1999 documented as of this encounter
--- OUTSIDE RECORDS SUMMARY | 2025-09-30 14:14 | XMS_ITS | Clinical Summary ---
Author Organization [address] Address [address] [place] [phone] Phone Care Team Providers Care Supplier Development Manager Name Role Phone Sami Curtis MD Primary Care Provider [phone] Allergies Active Allergy Reactions Criticality Noted Date Comments Other 04/25/2022 Seasonal Allergies Medications cholecalcifero l (VITAMIN D-3) 50 mcg (2,000 unit) capsule Take 2,000 Units by mouth daily. Active cetirizine (ZyrTEC) 10 mg tablet 1 TABLET DAILY 10/30/20 07 Active MULTIVITAMIN ORAL 1 tablet daily Active naproxen (NAPROSYN) 500 mg tablet Take 1 tablet (500 mg total) by mouth every 12 (twelve) hours if needed. Was given at [facility] Active methylPREDNISo lone (MEDROL) 4 mg tablet Take 6 tabs PO on day 1, 5 tabs PO on day 2, 4 tabs PO on day 3, 3 tabs PO on day 2, 2 tabs PO on day 5 and 1 tab PO on day 6. 21 tablet 05/08/20 25 Active levothyroxine (SYNTHROID, LEVOTHROID) 125 mcg tablet Take 1 tablet (125 mcg total) by mouth 1 (one) time each day before breakfast. 90 tablet 1 09/23/20 25 Active fluticasone propionate (FLONASE) 50 mcg/actuation nasal spray Administer 2 sprays into each nostril 2 (two) times a day. Shake gently. Before first use, prime pump. After use, clean tip and replace cap. 16 mL 3 09/23/20 25 025 Active cyclobenzaprin e (FLEXERIL) 5 mg tablet Take 1 tablet (5 mg total) by mouth 2 (two) times a day. 30 tablet 1 09/23/20 25 Active atorvastatin (LIPITOR) 10 mg tablet Take 1 tablet (10 mg total) by mouth 1 (one) time each day. 90 tablet 1 09/23/20 25 Active albuterol HFA (PROAIR HFA ; PROVENTIL HFA ; VENTOLIN HFA) 90 mcg/actuation inhaler Inhale 2 puffs by mouth 4 (four) times a day. 18 each 09/23/20 25 Active sertraline (ZOLOFT) 50 mg tablet Take 1.5 tablets (75 mg total) by mouth 1 (one) time each day. 135 tablet 1 09/23/20 25 Active sertraline (ZOLOFT) 100 mg tablet Take 1 tablet (100 mg total) by mouth 1 (one) time each day. 30 each 5 09/23/20 25 026 Active atorvastatin (LIPITOR) 10 mg tablet Take 1 tablet (10 mg total) by mouth 1 (one) time each day. 90 tablet 1 02/27/20 25 025 Discontinued cyclobenzaprin e (FLEXERIL) 5 mg tablet Take 1 tablet (5 mg total) by mouth 2 (two) times a day. 30 tablet 1 02/27/20 25 025 Discontinued(Re order) levothyroxine (SYNTHROID, LEVOTHROID) 125 mcg tablet Take 1 tablet (125 mcg total) by mouth 1 (one) time each day before breakfast. 90 tablet 1 02/27/20 25 025 Discontinued(Re order) sertraline (ZOLOFT) 50 mg tablet Take 1.5 tablets (75 mg total) by mouth 1 (one) time each day. 135 tablet 1 04/26/20 25 025 Discontinued(Re order) fluticasone propionate (FLONASE) 50 mcg/actuation nasal spray INSTILL 1 SPRAY INTO EACH NOSTRIL 1 TIME PER DAY. SHAKE GENTLY. AFTER USE, CLEAN TIP AND REPLACE CAP 16 mL 3 06/24/20 25 025 Discontinued(Re order) albuterol HFA (PROAIR HFA ; PROVENTIL HFA ; VENTOLIN HFA) 90 mcg/actuation inhaler INHALE 2 PUFFS BY MOUTH 4 (FOUR) TIMES A DAY. 18 each 5 06/25/20 025 Discontinued(Re order) atorvastatin (LIPITOR) 10 mg tablet TAKE 1 TABLET BY MOUTH 1 TIME EACH DAY. 90 tablet 09/20/20 025 Discontinued(Re order) Active Problems Problem Noted Date Diagnosed Date Prediabetes 10/20/2020 Elevated blood pressure reading 10/20/2020 Anxiety 08/19/2014 Asthma 01/10/2014 Hypothyroidism 06/03/2008 Obesity 06/19/2007 Hyperlipemia 06/19/2007 Encounters Date Type Department Care Team Description 09/23/2025 1:15 PM EST Office Visit Adult Medicine [address] [phone] Sami Curtis MD Hypothyroidism, unspecified type (Primary Dx); Need for prophylactic vaccination and inoculation against influenza; Other hyperlipidemia; Elevated blood pressure reading; Prediabetes; Class 1 obesity due to excess calories without serious comorbidity in adult, unspecified BMI; Neck pain 09/19/2025 Results Follow-Up Adult Medicine [address] [phone] Sami Curtis MD from Last 3 Months Immunizations Immunization Administration Dates Next Due Influenza Quadravalent, MDCK , 0.5ml, with preservative (Flucelvax) 6mo and older 11/08/2017 Influenza trivalent, 0.5mL ( Fluad) 65yo and older 09/23/2025,09/15/2022,10/09/2021,07/14,09/12/2019,09/18/2018,09/05/2016 Influenza trivalent, 0.5mL, preservative free (Fluarix; FluLaval; Fluzone) ages 6mo and older (Afluria) 3 years and older 09/18/2015,09/18/2014,09/27/2013,10/03,10/26/2011,09/28/2010,08/15/2009 ,09/14/2008,10/21/2007 Influenza, Unspecified 07/14/2020,09/18/2018 [place] SARS-CoV-2 COVID-19, mRNA, LNP-S, preservative free 08/15/2021,01/16/2021,12/26/2020 [...] Used Date Smoking Tobacco: Former Cigarettes 0 Q uit: 01/20/2012 Smokeless Tobacco: Never [...] Sign Reading Time Taken Comments Blood Pressure 122/82 09/23/2025 1:05 PM EST Pulse 78 09/23/2025 1:05 PM EST Temperature 36.4 C (97.6 F) 09/23/2025 1:05 PM EST Respiratory Rate 12 09/23/2025 1:05 PM EST Oxygen Saturation 97% 09/23/2025 1:05 PM EST Inhaled Oxygen Concentration - - Weight 93.3 kg (205 lb 9.6 oz) 09/23/2025 1:05 P M EST Height 156.2 cm (5' 1.5 ) 09/23/2025 1:05 PM EST Body Mass Index 38.22 09/23/2025 1:05 PM EST Plan of Treatment Upcoming Encounters Date Type Department Care Team (Late st Contact Info) Description 01/28/2026 10:00 AM EDT Office Visit Adult Medicine [facility] [address] [place] [address] Sami Curtis MD [address] [place] [address] Health Maintenance Due Date Last Done Comments Falls Risk Assessment 10/30/2022 Medicare Annual Wellness Visit 10/30/2022 Social Influencers of Health Screening 10/30/2022 DTaP,Tdap,and Td Vaccines (3 - Td or Tdap) 03/15/2023 03/15/2013, 09/13/2003 Depression Screening 11/21/2024 Colorectal Cancer Screening: Stool Based Tests (FOBT/FIT) 02/20/2025 02/21/2024 COVID-19 Vaccine ( season) 2025 09/17/2024, 11/02/2023, 09/15/2022, Additional history exists Cholesterol Screening (Lipid Panel) 02/18/2030 02/18/2025, 02/10/2024 Osteoporosis Screening (Bone Density Screening) 02/28/2033 02/28/2023, 01/09/2020 Zoster Vaccines Completed 08/10/2020, 05/22, 12/06/2012 Pneumococcal Vaccine: 50+ Years Completed 10/24/2024, 10/10/2018, 10/26/2011 RSV Immunization Adult Patients Completed 10/24/2024 Influenza Vaccine Completed 09/23/2025, , 08/26/2023, Additional history exists HIB Vaccines Aged Out No longer eligi [...] Date/Time Associated Diagnosis Comments TRIIODOTHYRONINE FREE Routine 09/17/2025 9:36 AM EDT Hypothyroidism, unspecified type FREE THYROXINE WITH REFLEX TO FREE TRIIODOTHYRONINE Routine 09/17/2025 9:36 AM EDT Hypothyroidism, unspecified type HEMOGLOBIN A1C Routine 09/17/2025 9:36 AM EDT Prediabetes THYROID STIMULATING HORMONE WITH REFLEX TO FREE T4 AND FREE T3 Routine 09/17/2025 9:36 AM EDT Hypothyroidism, unspecified type LIPID PANEL WITH REFLEX TO DIRECT LDL Routine 02/18/2025 12:00 PM EDT Other hyperlipidemia HM STOOL BASED TEST Routine 02/21/2024 DXA BONE DENSITY STUDY 1+ SITS AXIAL SKEL Routine 02/28/2023 9:27 AM EDT Asymptomatic menopausal state from Last 3 Months or Most Recently Relevant to Health Maintenance Results * (ABNORMAL) Thyroid stimulating hormone with reflex to free t4 and free t3 (09/17/2025 9:36 AM EDT) TSH 9.77(H) 0.40 - 4.00 mcIU/mL LAB CHEMISTRY METHOD 09/17/2025 1:05 PM EDT [facility] Blood Venous blood specimen / Unknown Venipuncture / Unknown 09/17/2025 9:36 AM EDT 09/17/2025 9:36 AM EDT us Sami Curtis MD LAB BLOOD ORDERABLES Final Resul t Performing Organization Address City/[facility]/ZIP Co de Phone Number [facility] [address] [place] [address], [place] [phone] * Free thyroxine with reflex to free triiodothyronine (09/17/2025 9:36 AM EDT) Free T4 0.88 0.70 - 1.80 ng/dL LAB CHEMISTRY METHOD 09/17/2025 1:34 PM EDT [facility] Blood Venous blood specimen / Unknown Venipuncture / Unknown 09/17/2025 9:36 AM EDT 09/17/2025 9:36 AM EDT us Sami Curtis MD LAB BLOOD ORDERABLES Final Resul t Performing Organization Address [facility] Co de Phone Number [facility] [address] [place] [address], [place] [phone] * Triiodothyronine free (09/17/2025 9:36 AM EDT) T3, Free 266 230 - 420 pcg/dL LAB CHEMISTRY METHOD 09/17/2025 1:57 PM EDT [facility] Blood Venous blood specimen / Unknown Venipuncture / Unknown 09/17/2025 9:36 AM EDT 09/17/2025 9:36 AM EDT us Sami Curtis MD LAB BLOOD ORDERABLES Final Resul t Performing Organization Address City/[facility]/ZIP Co de Phone Number [facility] [address] [place] [address], [place] [phone] * Hemoglobin A1c (09/17/2025 9:36 AM EDT) Hemoglobin A1C 6.0 <6.5 % LAB CHEMISTRY METHOD 09/17/2025 2:02 PM EDT [facility] Mean Bld Glu Estim. 126 mg/dL LAB CHEMISTRY METHOD 09/17/2025 2:02 PM T [facility] Blood Venous blood specimen / Unknown Venipuncture / Unknown 09/17/2025 9:36 AM EDT 09/17/2025 9:36 AM EDT us Sami Curtis MD LAB BLOOD ORDERABLES Final Resul t [facility] [address] [place] [address], [place] [phone] * Lipid panel with reflex to direct LDL (02/18/2025 12:00 PM EDT) Cholesterol 184 0 - 200 mg/dL LAB CHEMISTRY METHOD 02/18/2025 3:34 PM T [facility] Triglycerides 111 0 - 150 mg/dL LAB CHEMISTRY METHOD 02/18/2025 3:34 PM T [facility] HDL 69 >=40 mg/dL LAB CHEMISTRY METHOD 02/18/2025 3:34 PM T [facility] LDL Calculated 93 0 - 100 mg/dL LAB CHEMISTRY METHOD 02/18/2025 3:34 PM [facility] VLDL Cholesterol Charles 22.2 mg/dL LAB CHEMISTRY METHOD 02/18/2025 3:34 PM T [facility] Non HDL Chol. (LDL+VLDL) 115 <145 mg/dL LAB CHEMISTRY METHOD 02/18/2025 3:34 PM T [facility] Chol/HDL Ratio 2.7 0.0 - 4.4 LAB CHEMISTRY METHOD 02/18/2025 3:34 PM [facility] Blood Venous blood specimen / Unknown Venipuncture / Unknown 02/18/2025 12:00 PM EDT 02/18/2025 12:01 PM EDT Sami Curtis MD LAB BLOOD ORDERABLES Final Resul t [facility] [address] [place] [address], [place] [phone] * Stool Based Tests (FOBT/FIT) (02/21/2024) [facility] Colorectal Cancer Screening: Stool Based Tests Abstracted [...] as having normal bone density. T [facility] Department of Internal Medicine recommends [...] of fracture risk by FRAX. Procedure Note Jescia Almendarez MD - 12/26/2023 BONE DENSITY Lumbar [...] as having normal bone density. T [facility] Department of Internal Medicine recommendsusing [...] [employer] Care Teams Supplier Development Manager Relationship Specialty Start Date End Date Sami Curtis MD [address] [place] [address] PCP - General 09/20/1999
--- OUTSIDE RECORDS SUMMARY | 2025-09-30 14:14 | XMS_ITS | Encounter Summary ---
Author Organization [facility] Address [address] [place] [address] Care Team Providers Care Guitar Instructor Name Role Phone Sami Curtis MD Primary Care Provider [phone] Encounter Details Date Type Department Care Team (Late Contact Info) Description 09/19/2025 Results Follow-Up Adult Medicine [address] [phone] Sami Curtis MD [address] [place] [address] Social History Tobacco Use Types Packs/Day Years [...] on file Sexual Orientation Not on file documented as of this encounter Plan of Treatment Upcoming Encounters Date Type Department Care Team (Late Contact Info) Description 01/28/2026 10:00 AM EDT Office Visit Adult [address] [phone] Sami Curtis MD [address] [place] [address] documented as of this encounter Visit Diagnoses Not on filedocumented in this encounter Care Teams Guitar Instructor Relationship Specialty Start Date End Date Sami Curtis MD [address] [place] [address] PCP - General 09/20/1999 documented as of this encounter
== END 2025-09-30 12:58 | disposition home or self-care (01) ==
PROVIDERS: PCP Internal Medicine; Visit Provider Physician Assistant Medical
DX: R09.81 Nasal congestion (principal)

== ENCOUNTER 2025-09-30 11:50 | Outpatient (REF) | payer MEDICARE, SELFPAY ==
[2025-09-30 14:34] LABS: Resp Syncy Virus RNA Qual PCR NEGATIVE (Negative); SARS COV2 PCR INHOUSE NEGATIVE (Negative)
== END 2025-09-30 11:51 | disposition home or self-care (01) ==
LOC: HO.LNP 11:50
PROVIDERS: PCP Internal Medicine; Visit Provider Physician Assistant Medical
DX: R09.81 Nasal congestion (principal); F17.200 Nicotine dependence, unspecified, uncomplicated
CPT/HCPCS: 87637; 99212